=== PATIENT | male | born 1965 | race Caucasian/White ===

== ENCOUNTER 2020-08-02 10:08 | Inpatient (IN) ==
[2020-08-02] MEDS ORDERED: MoRPHine SULFATE 10 MG/ML CARP/VIAL IV STA (11:18)
[2020-08-02] MEDS ORDERED: ONDANSETRON INJ 2 MG/ML 2 ML VIAL IV STA (11:18)
--- NOTE | 2020-08-02 11:22 | Emergency Department Note ---
History of Present Illness General Chief complaint: Neck Injury/Pain Stated complaint: DR. GARCIA REFERRED TO ED, HARD TO SWALLOW Time Seen by Provider: 08/02/20 11:06 Source: patient, family and other (Dr. Garcia) History of Present Illness Provider complaint: Head and neck pain Onset (ago): week(s) 2 Location: head and neck Pain Consistency: + constant Maximum Pain Intensity: 10 Quality: + aching Exacerbated By: + movement Associated symptoms: + cough (Chronic), + headaches, + shortness of breath and + other (Difficulty swallowing); no chest pain, no fever/chills and no nausea/vomiting This is a 55-year-old male with a history of lung cancer with mets to the brain presenting for admission to the hospital. He complains of pain to his neck and his head for the past 2 weeks. He describes it as a severe ache. He rates it a 10 out of 10 in severity. I did obtain history from the patient, his as well as Dr. Mccabe. Dr. Garcia said that he wanted the patient admitted for pain control and transition to palliative care. The patient states that he has had trouble swallowing over the past week. When he tries to swallow it sometimes comes right back up. He has to spit it out. He has been able to drink and keep some fluids down as well as eat some food but not very much. He denies any abdominal pain or vomiting or diarrhea. He has been urinating. He denies any fever. He has been vaccinated fully for COVID-19. Home Medications Medication Instructions Recorded Confirmed Type gabapentin 300 mg capsule 300 mg PO BID 02/09/20 08/02/20 History acetaminophen 325 mg capsule 325 mg PO Q6H PRN cap 04/19/20 08/02/20 History prednisone 20 mg tablet 20 mg PO QDD 05/03/20 08/02/20 History amlodipine 2.5 mg PO QAM 08/02/20 08/02/20 History Allergies Allergy/AdvReac Type Severity Reaction Status Date / Time No Known Allergies Allergy Verified 08/02/20 13:57 Past Med/Surg History Medical History Anemia History of chemotherapy (11/25/18) Abraxane, Carboplatin & Keytruda x cycles Maintenance Keytruda - stopped 06/12/2019 due to rash Salvage Weekly Gemcitabine Non-small cell lung cancer metastatic to brain (10/21/18) Pericardial effusion Status post gamma knife treatment (11/03/18) [address] Caballero ([facility]) Surgical History History of brain surgery (10/21/18) Left Sided Suboccipital craniectomy by Dr. Donis Llanos ([place]) History of knee surgery as a teenager - "bone tumor removed" History of melanoma excision (2011) Right shoulder Family History Grandfather (Paternal) , Passed age 65 of metastatic cancer (unknown primary) No problems noted. Mother Breast cancer, Onset Age: 70 lumpectomy & radiation Father No problems noted. Sister No problems noted. Sister No problems noted. Sister No problems noted. Son No problems noted. Daughter No problems noted. Social History Smoking Status: Current every day smoker Tobacco Type: Cigarettes packs per day: 0.75; Years Smoked: 40; Second Hand Exposure: No; Hx Alcohol Use: Yes Alcohol type: beer and hard liquor Alcohol Intake Frequency: 4 or More x per/Week Hx Substance Use: Yes Non-Prescribed Medications: Marijuana Non-Prescribed Medications Comment: nightly Last Used Substance: Days (ago) Last Used Substance Other:: every night Preferred Language: Citizen Of [place] Communication Ability: Effective Visual Impairment: Limited Hearing Ability: Normal Beliefs That Will Affect Care: None marital status: Current Living Situation: Spouse current occupational status: unemployed 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 and A total of 10 systems reviewed and were otherwise negative Physical Exam Vital Signs Vital Signs - 24 hr 08/02/20 10:13 08/02/20 10:37 08/02/20 10:52 Temperature 36.8 C Temperature Source Temporal Artery Scan Pulse Rate 77 77 Pulse Rate from SpO2 Sensor 78 Pulse Rhythm Regular Pulse Strength Normal Respiratory Rate 18 Respiratory Effort / Characteristics Non-Labored Respiratory Depth Normal Respiratory Pattern Regular Blood Pressure 189/124 H 189/128 H Blood Pressure Mean 145 148 Blood Pressure Position Sitting Pulse Oximetry 98 96 Oxygen Delivery Method Room Air Sepsis Recent Fever Within 48 Hours No Sepsis New/Unexplained Change in Mental Status No N/A Sepsis Action Taken by Nursing No Action Required No Action Required 08/02/20 11:00 08/02/20 12:30 08/02/20 13:00 Temperature Temperature Source Pulse Rate 79 75 74 Pulse Rate from SpO2 Sensor 79 76 74 Pulse Rhythm Pulse Strength Respiratory Rate 12 18 7 L Respiratory Effort / Characteristics Respiratory Depth Respiratory Pattern Blood Pressure 196/132 H 191/120 H 191/127 H Blood Pressure Mean 153 143 148 Blood Pressure Position Pulse Oximetry 97 97 97 Oxygen Delivery Method Sepsis Recent Fever Within 48 Hours Sepsis New/Unexplained Change in Mental Status Sepsis Action Taken by Nursing 08/02/20 14:00 Temperature Temperature Source Pulse Rate 79 Pulse Rate from SpO2 Sensor 80 Pulse Rhythm Pulse Strength Respiratory Rate 16 Respiratory Effort / Characteristics Respiratory Depth Respiratory Pattern Blood Pressure 182/129 H Blood Pressure Mean 146 Blood Pressure Position Pulse Oximetry 98 Oxygen Delivery Method Sepsis Recent Fever Within 48 Hours Sepsis New/Unexplained Change in Mental Status Sepsis Action Taken by Nursing Constitutional: Vital signs reviewed. Eyes: Pupils are equal round reactive to light. Conjunctiva are noninjected. ENT: Pharynx is clear without erythema or exudate. Mucous membranes are dry. Neck supple without meningeal signs. Respiratory: Clear to auscultation bilaterally. Breath sounds are equal bilaterally. Cardiovascular: Regular rate and rhythm. No rubs or gallops. GI: Soft, nondistended and nontender. Bowel sounds are present. Musculoskeletal: No peripheral edema. No lower extremity tenderness. Integumentary: No cyanosis. or jaundice. Neurological: The patient is awake and alert. No focal deficits. Psychiatric: Normal affect. Course Administered Medications Sodium Chloride (Nss) 500 mls @ 125 mls/hr IV [facility] Stop: 09/01/20 11:29 Last Admin: 08/02/20 11:43 Dose: 125 mls/hr Documented by: [id number] Discontinued Medications Morphine Sulfate (Morphine Sulfate 10 Mg/Ml Carp/Vial) 6 mg IV NOW STA Stop: 08/02/20 11:19 Last Admin: 08/02/20 11:42 Dose: 6 mg Documented by: [id number] Ondansetron HCl (Ondansetron Inj 2 Mg/Ml 2 Ml Vial) 4 mg IV NOW STA Stop: 08/02/20 11:19 Last Admin: 08/02/20 11:42 Dose: 4 mg Documented by: [id number] Medical Decision Making Differential Diagnosis Metastatic disease to the brain, intracranial hemorrhage, migraine headache, tension headache, chronic pain syndrome Medical Records Attestation: I reviewed the patient's medical records. I did perform a limited focused review of portions of the patient's old chart on the electronic medical record. The patient had an MRI of the brain in April of this year which showed the following: IMPRESSION: 1. Interval increase in a 1.3 cm enhancing focus and adjacent T2 hyperintensity within the left cerebellar hemisphere since MRI of February 01, 2020. This favors disease progression. Post radiation change could appear similar although is considered less likely. 2. Slight increase in an additional 1 cm left temporal lobe focus which favors disease progression or less likely post radiation change. 3. No change in a 1.3 cm left frontal lobe lesion since prior exam. All of these lesions remain markedly decreased since initial MRI of October 16, 2018. 4. No new lesions identified. ACT 112: Negative or not required by law. Laboratory Data Result diagrams: 08/02/20 10:38 08/02/20 10:38 Lab Results 08/02/20 08/02/20 08/02/20 Range/Units 10:38 10:38 10:38 WBC 6.34 (4.8-10.8) K/uL RBC 5.08 (4.7-6.1) M/uL Hgb 17.2 (14.0-18.0) g/dL Hct 47.7 (42-52) % MCV 93.9 (80-100) fL MCH 33.9 (25-34) pg MCHC 36.1 H (32-36) g/dL RDW Std Deviation 45.5 (36.4-46.3) fL RDW Coeff of Cameron 13.2 (11.5-14.5) % Plt Count 223 (130-400) K/uL MPV 9.1 (7.4-10.4) fL Immature Gran % (Auto) 0.2 % Neut % (Auto) 74.0 % Lymph % (Auto) 16.9 % [place] % (Auto) 8.5 % Eos % (Auto) 0.2 % Baso % (Auto) 0.2 % Neut # (Auto) 4.70 (1.4-6.5) K/uL Lymph # (Auto) 1.07 L (1.2-3.4) K/uL [place] # (Auto) 0.54 (0.11-0.59) K/uL Eos # (Auto) 0.01 (0-0.5) K/uL Baso # (Auto) 0.01 (0-0.2) K/uL Immature Gran # (Auto) 0.01 (0.00-0.02) K/uL PT 10.0 (9.0-12.0) Seconds INR 1.0 (0.9-1.1) APTT 27.9 (21.0-31.0) Seconds PTT Ratio 1.1 Sodium 135 L (136-145) mmol/L Potassium 3.7 (3.5-5.1) mmol/L Chloride 100 (98-107) mmol/L Carbon Dioxide 30 (21-32) mmol/L Anion Gap 5.0 (3-11) BUN 21 H (7-18) mg/dl Creatinine 1.21 (0.6-1.4) mg/dl Est Cr Clr Drug Dosing 65.1 ml/min Est GFR ( Amer) 77.1 Est GFR (Non-Af Amer) 66.5 BUN/Creatinine Ratio 17.7 (10-20) Glucose 81 (70-99) mg/dl Calcium 9.9 (8.5-10.1) mg/dl Total Bilirubin 0.5 (0.2-1) mg/dl AST 29 (15-37) U/L ALT 30 (12-78) U/L Alkaline Phosphatase 85 (45-117) U/L Total Protein 8.1 (6.4-8.2) gm/dl Albumin 3.6 (3.4-5.0) gm/dl Globulin 4.5 H (2.5-4.0) gm/dl Albumin/Globulin Ratio 0.8 L (0.9-2) COVID-19 Eval Order SARS-CoV-2 (PCR) (Negative) Influenza Type A (PCR) (Neg) Influenza Type B (PCR) (Neg) RSV (RT-PCR) (Neg) 08/02/20 08/02/20 Range/Units 11:40 11:40 WBC (4.8-10.8) K/uL RBC (4.7-6.1) M/uL Hgb (14.0-18.0) g/dL Hct (42-52) % MCV (80-100) fL MCH (25-34) pg MCHC (32-36) g/dL RDW Std Deviation (36.4-46.3) fL RDW Coeff of Cameron (11.5-14.5) % Plt Count (130-400) K/uL MPV (7.4-10.4) fL Immature Gran % (Auto) % Neut % (Auto) % Lymph % (Auto) % [place] % (Auto) % Eos % (Auto) % Baso % (Auto) % Neut # (Auto) (1.4-6.5) K/uL Lymph # (Auto) (1.2-3.4) K/uL [place] # (Auto) (0.11-0.59) K/uL Eos # (Auto) (0-0.5) K/uL Baso # (Auto) (0-0.2) K/uL Immature Gran # (Auto) (0.00-0.02) K/uL PT (9.0-12.0) Seconds INR (0.9-1.1) APTT (21.0-31.0) Seconds PTT Ratio Sodium (136-145) mmol/L Potassium (3.5-5.1) mmol/L Chloride (98-107) mmol/L Carbon Dioxide (21-32) mmol/L Anion Gap (3-11) BUN (7-18) mg/dl Creatinine (0.6-1.4) mg/dl Est Cr Clr Drug Dosing ml/min Est GFR ( Amer) Est GFR (Non-Af Amer) BUN/Creatinine Ratio (10-20) Glucose (70-99) mg/dl Calcium (8.5-10.1) mg/dl Total Bilirubin (0.2-1) mg/dl AST (15-37) U/L ALT (12-78) U/L Alkaline Phosphatase (45-117) U/L Total Protein (6.4-8.2) gm/dl Albumin (3.4-5.0) gm/dl Globulin (2.5-4.0) gm/dl Albumin/Globulin Ratio (0.9-2) COVID-19 Eval Order [facility]FluRsv at [facility] SARS-CoV-2 (PCR) NEGATIVE (Negative) Influenza Type A (PCR) Negative (Neg) Influenza Type B (PCR) Negative (Neg) RSV (RT-PCR) Negative (Neg) Imaging Data Radiologist's Impression: Chest X-Ray 08/02/20 11:18 XR chest 1V portable HISTORY: 55 years-old Male cough eval for pna acute cough with possible pneumonia COMPARISON: Chest CT 02/01/2020, chest radiograph 10/20/2018. TECHNIQUE: Portable AP view of the chest FINDINGS: Cardiac silhouette is enlarged. Mild bilateral hilar prominence. Increased size of the previously treated left upper lobe mass now measuring 5.1 x 6.5 cm, most recently measured at 4.7 x 3.3 cm. Ill-defined lesion of the right upper lobe measuring 1.9 cm redemonstrated along with right infrahilar nodule. No pneumothorax, pleural effusion or overt pulmonary edema. Bones of the chest appear grossly intact. IMPRESSION: 1. Increased size of the previously treated left upper lobe mass now measuring up to 6.5 cm. 2. Right upper lobe and right infrahilar nodules redemonstrated. 3. Emphysema. 4. Cardiomegaly. 5. Mild bilateral hilar prominence may correlate with underlying adenopathy. ACT 112: Negative or not required by law. The above report was generated using voice recognition software. It may contain grammatical, syntax or spelling errors. Electronically signed by: Nicholas Kurtz M.D. 08/02/2020 12:[address] 08/02/20 11:29 CT SCAN OF THE BRAIN WITHOUT IV CONTRAST CLINICAL HISTORY: Headache. Lung cancer. Known intracranial metastatic disease. COMPARISON STUDY: MRI of the brain dated 04/11/2020. TECHNIQUE: Unenhanced axial CT scan of the brain is performed from the vertex to the skull base. A dose lowering technique was utilized adhering to the principles of ALARA. CT DOSE: 788.63 mGycm FINDINGS: Brain parenchyma: There are foci of edema with mild mass effect identified in the left frontal lobe (images #16 and #19), the right anterior temporal fossa, and in the left cerebellar hemisphere, as well as image #9). When correlated with the recent MRI these are consistent with metastatic disease. There are parenchymal calcifications noted in the left frontal lobe. There are age-related involutional changes noting mild subcortical and periventricular microangiopathic change. There is no hemorrhage, midline shift, or evidence of acute territorial ischemia by CT criteria. Small chronic lacunar infarcts are noted in the right cerebellar hemisphere and the right thalamus. No extra-axial fluid collection is seen. Ventricles, sulci, cisterns: Prominent secondary to involutional change. Intracranial vasculature: There is atherosclerotic calcification of the cavernous carotid arteries. Calvarium: There is postoperative change from occipital craniectomy. 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 No lytic or blastic bony lesion is seen. Sinuses and mastoids: The visualized paranasal sinuses are clear. The mastoid air cells are well pneumatized. Orbits: The bony orbits are grossly intact. IMPRESSION: 1. There is no hemorrhage, midline shift, or evidence of acute territorial ischemia by CT criteria. 2. There are several foci of intracranial edema identified as detailed above, consistent with the patient's known history of intracranial metastatic disease. Direct comparison to the 04/11/2020 MRI is difficult due to differences in modality. 3. There is postoperative change from occipital craniectomy with associated pseudomeningocele. ACT 112: Negative or not required by law. Electronically signed by: Bronson Birmingham M.D. 08/02/2020 12:19 PM MDM Narrative I did evaluate the patient as noted above. I did obtain history from the patient and his . I also talked to Dr. Garcia about the patient. He wanted the patient to be admitted for intractable pain and transition to palliative care. IV access was established. I did treat the patient with IV morphine and Zofran. He was also given normal saline IV. I did order and personally re viewed the images of the patient's chest x-ray as described above. His left upper lobe mass has increased in size. I did order and review the patient's blood work as noted in the electronic medical record. CBC is unremarkable without leukocytosis, anemia or thrombocytopenia. Electrolytes are remarkable for sodium of 135. I did order a CT of the head. I did review the images myself as well as the radiology report as described above. There is no evidence of hemorrhage. He does have metastatic disease. I did discuss case with the hospitalist and rifle case repairer for further care in the hospital. His screening Covid test was negative. Impression & Plan Non-small cell lung cancer metastatic to brain, Headache, Neck pain, Dysphagia Discharge Plan Visit Data Chief Complaint: Neck Injury/Pain Stated Complaint: DR. GARCIA REFERRED TO ED, HARD TO SWALLOW ED Provider: Andrez Reyes Discharge Problem: Non-small cell lung cancer metastatic to brain, Headache, Neck pain, Dysphagia Patient Disposition: Being Evaluated by Hospitalist Forms Stand Alone Forms: My [facility] Prescriptions Prescriptions: No Action gabapentin 300 mg capsule 300 mg PO BID RF: 0 acetaminophen [Tylenol] 325 mg capsule 325 mg PO Q6H PRN (Reason: Pain) RF: 0 prednisone 20 mg tablet 20 mg PO QDD RF: 0 amlodipine 2.5 mg tablet 2.5 mg PO QAM RF: 0 Referrals Referrals: Nehemias Shane [Primary Care Provider] -
[2020-08-02 11:30] LABS: Basophils # (auto) 0.01 K/uL (0-0.2); Basophils % (auto) 0.2 %; Eosinophils # (auto) 0.01 K/uL (0-0.5); Eosinophils % (auto) 0.2 %; Hematocrit (blood only) 47.7 % (42-52); Hemoglobin 17.2 g/dL (14.0-18.0); Immature Granulocytes # (auto) 0.01 K/uL (0.00-0.02); Immature Granulocytes % (auto) 0.2 %; Lymphocytes # (auto) 1.07 K/uL (1.2-3.4); Lymphocytes % (auto) 16.9 %; Mean Corpuscular Hemoglobin 33.9 pg (25-34); Mean Corpuscular Hgb Conc 36.1 g/dL (32-36); Mean Corpuscular Volume 93.9 fL (80-100); Mean Platelet Volume 9.1 fL (7.4-10.4); Monocytes # (auto) 0.54 K/uL (0.11-0.59); Monocytes % (auto) 8.5 %; Platelet Count 223 K/uL (130-400); RDW Coefficient of Variation 13.2 % (11.5-14.5); RDW Standard Deviation 45.5 fL (36.4-46.3); Red Blood Count 5.08 M/uL (4.7-6.1); White Blood Count 6.34 K/uL (4.8-10.8)
[2020-08-02 11:37] LABS: Albumin Level 3.6 gm/dl (3.4-5.0); BUN Creatinine Ratio 17.7 (10-20); Calcium 9.9 mg/dl (8.5-10.1); Creatinine Clr Calc Pharmacy 65.1 ml/min; Est GFR (African American) 77.1; Est GFR (Non-African American) 66.5; Potassium 3.7 mmol/L (3.5-5.1)
[2020-08-02 11:39] LABS: Albumin Globulin Ratio 0.8 (0.9-2); Bilirubin,Total 0.5 mg/dl (0.2-1); Globulin 4.5 gm/dl (2.5-4.0); Total Protein 8.1 gm/dl (6.4-8.2)
[2020-08-02 11:41] LABS: Partial Thromboplastin Ratio 1.1; Partial Thromboplastin Time 27.9 Seconds (21.0-31.0)
[2020-08-02] MEDS: SODIUM CHLORIDE 0.9% 500 ML IV SCH (11:43)
--- NOTE | 2020-08-02 12:21 | CT Scan Report ---
CT SCAN OF THE BRAIN WITHOUT IV CONTRAST CLINICAL HISTORY: Headache. Lung cancer. Known intracranial metastatic disease. COMPARISON STUDY: MRI of the brain dated 04/11/2020. TECHNIQUE: Unenhanced axial CT scan of the brain is performed from the vertex to the skull base. A do se lowering technique was utilized adhering to the principles of ALARA. CT DOSE: 788.63 mGycm FINDINGS: Brain parenchyma: There are foci of edema with mild mass effect identified in the left frontal lobe ( images #16 and #19), the right anterior temporal fossa, and in the left cerebellar hemisphere, as wel l as image #9). When correlated with the recent MRI these are consistent with metastatic disease. The re are parenchymal calcifications noted in the left frontal lobe. There are age-related involutional changes noting mild subcortical and periventricular microangiopathic change. There is no hemorrhage, midline shift, or evidence of acute territorial ischemia by CT criteria. Small chronic lacunar infar cts are noted in the right cerebellar hemisphere and the right thalamus. No extra-axial fluid collect ion is seen. Ventricles, sulci, cisterns: Prominent secondary to involutional change. Intracranial vasculature: There is atherosclerotic calcification of the cavernous carotid arteries. Calvarium: There is postoperative change from occipital craniectomy. Associated occipital pseudomenin gocele measures up to 4 cm. No lytic or blastic bony lesion is seen. Sinuses and mastoids: The visualized paranasal sinuses are clear. The mastoid air cells are well pneu matized. Orbits: The bony orbits are grossly intact. IMPRESSION: 1. There is no hemorrhage, midline shift, or evidence of acute territorial ischemia by CT criteria. 2. There are several foci of intracranial edema identified as detailed above, consistent with the pat ient's known history of intracranial metastatic disease. Direct comparison to the 04/11/2020 MRI is di fficult due to differences in modality. 3. There is postoperative change from occipital craniectomy with associated pseudomeningocele. ACT 112: Negative or not required by law. Electronically signed by: Bronson Birmingham M.D. 08/02/2020 12:19 PM
[2020-08-02 12:33] LABS: Influenza A virus by PCR Negative (Neg); Influenza B virus by PCR Negative (Neg); RSV by PCR Negative (Neg); SARS CoV2 RNA(COVID-19) InHosp NEGATIVE (Negative)
--- NOTE | 2020-08-02 12:54 | XRay Report ---
XR chest 1V portable HISTORY: 55 years-old Male cough eval for pna acute cough with possible pneumonia COMPARISON: Chest CT 02/01/2020, chest radiograph 10/20/2018. TECHNIQUE: Portable AP view of the chest FINDINGS: Cardiac silhouette is enlarged. Mild bilateral hilar prominence. Increased size of the previously torres ated left upper lobe mass now measuring 5.1 x 6.5 cm, most recently measured at 4.7 x 3.3 cm. Ill-def ined lesion of the right upper lobe measuring 1.9 cm redemonstrated along with right infrahilar nodul e. No pneumothorax, pleural effusion or overt pulmonary edema. Bones of the chest appear grossly inta ct. IMPRESSION: 1. Increased size of the previously treated left upper lobe mass now measuring up to 6.5 cm. 2. Right upper lobe and right infrahilar nodules redemonstrated. 3. Emphysema. 4. Cardiomegaly. 5. Mild bilateral hilar prominence may correlate with underlying adenopathy. ACT 112: Negative or not required by law. The above report was generated using voice recognition software. It may contain grammatical, syntax o r spelling errors. Electronically signed by: Nicholas Kurtz M.D. 08/02/2020 12:53 PM
--- NOTE | 2020-08-02 15:37 | History & Physical Report ---
Date of Service August 02, 2020 Assessment & Plan (1) Non-small cell lung cancer metastatic to brain: As per HPI. See Oncology note from 04/13/20 - Patient and ready for palliative care and hospice - Admit to medical floor - Morphine 4 mg IV q2 hr PRN severe pain, Roxanol 10 mg q4 PRN pain, Tylenol PRN - Ativan for anxiety or seizure - Magic swizzle for oral care if desired - liquid and food as desired for comfort- speech swallow recs pending- Appreciate as this will greatly assist with patient's basic pleasure and needs. - LR at 90 ml hour - Palliative care and case management consult for- hospice (2) Headache: as above pain control control BP (3) Neck pain: As above - lidoderm patch (4) Dysphagia: As above, appreciate speech therapy. - Goal is patient comfort and ease of enjoying a meal and fluid (5) Acute kidney injury: No acute needs, palliative care - May need to adjust medications if this changes during admission for clearance. (6) HTN (hypertension), benign: Continue home amlodipine Add IV hydralazine for blood pressure greater than 180 Blood pressures were as high as 200/125 after admission (7) Ineffective coping: Patient with adequate reasons for anger - Get pateint's basic needs met with pain control and diet - It may be worth re-assessing patient's coping strategies when pain is better met - His way of dealing now is outbursts to his and alcohol and smoking - Consider psychiatric consultation as he does voice that he can at home with a gun - he has no active plan and no access to this while here. History of Present Illness Chief Complaint: cancer Primary Care Provider: Nehemias Shane 55 YOM with NSCLC with metastatic disease to brain 2018. He was originally diagnosed in 2019 through evaluation for bifrontal headaches, anorexia and weight loss. MRI of the brain revealed multiple intra-cerebral and cerebellar lesions and [place] [facility] completed 6 cycles of combo Paclitaxel, Carboplatin, and Pembrolizumab and then was on maintenance Pembrolizumab that was discontinued in May 2019 secondary to severe disseminated skin rash. He then started Gemzar in October of 2019. Brain MRI in January with new left cerebellar and left temporal lobe lesions and underwent Gamma knife in Mar 2020. His disease continued to progress and involved renal dysfunction and probable GI bleed requiring transfusions. In April patient had discussion with his oncologist and the for transition to palliative care and home hospice. The patient did not undergo hospice care, because he didn't feel that he needed it at that time. Patient was referred in today by his Oncologist Dr. Andrea, for worsening pain to his neck, hips, and feet, decline in nutritional status and functional status. I spoke with the patient and his who remains at the bedside, he is rightfully angry at his situation. He was able to be calmed down, to assess what he feels is important and needed for him. He does wish to remain no code and transition to being made comfortable. He wants to eat and smoke. He did accept a nicotine patch and that calmed him down knowing that was an option. He reports difficulty eating because he has no teeth to chew his food, and gets tired easily chewing, this leads him to having swallowing difficulties. His also notes that he coughs on water when he is fatigued. They both are ready for hospice assistance. What is important to the patient now is having better pain control, being able to enjoy some food, wants alcohol and to be able to smoke. He was on no pain mediations prior, so will start with Morphine IV for severe pain, Roxanol for longer lasting relief, and Tylenol. Speech therapy consult to assist with possibly getting a consistency of food and liquid that is easier for him to manage. Palliative care consult will also be placed. Allergies Allergy/AdvReac Type Severity Reaction Status Date / Time No Known Allergies Allergy Verified 08/02/20 13:57 Home Medications Medication Instructions Recorded Confirmed Type gabapentin 300 mg capsule 300 mg PO BID 02/09/20 08/02/20 History acetaminophen 325 mg capsule 325 mg PO Q6H PRN cap 04/19/20 08/02/20 History prednisone 20 mg tablet 20 mg PO QDD 05/03/20 08/02/20 History amlodipine 2.5 mg PO QAM 08/02/20 08/02/20 History Past Med/Surg History Medical History Anemia History of chemotherapy (11/25/18) Abraxane, Carboplatin & Keytruda x cycles Maintenance Keytruda - stopped 06/12/2019 due to rash Salvage Weekly Gemcitabine Non-small cell lung cancer metastatic to brain (10/21/18) Pericardial effusion Status post gamma knife treatment (11/03/18) [address] Caballero ([place] [facility]) Surgical History History of brain surgery (10/21/18) Left Sided Suboccipital craniectomy by Dr. Donis Llanos ([place]) History of knee surgery as a teenager - "bone tumor removed" History of melanoma excision (2011) Right shoulder Family History Grandfather (Paternal) , Passed age 65 of metastatic cancer (unknown primary) No problems noted. Mother Breast cancer, Onset Age: 70 lumpectomy & radiation Father No problems noted. Sister No problems noted. Sister No problems noted. Sister No problems noted. Son No problems noted. Daughter No problems noted. 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 Feels Safe at Home: Yes Childhood Exposure to Second-Hand Smoke: No caffeine: Yes (1-2 cup of coffee/day ) during the past year weight has: remained stable Dental Care, Regularly: No Assistive Devices: Cane and Walker Review of Systems Review of Systems: REVIEW OF SYSTEMS: Constitutional: No fever, sweats or chills Eyes: No diplopia, no worsening or blurred vision ENT: (+) Difficulty hearing, trouble swallowing Respiratory: (+) cough, sputum, NO dyspnea at rest or on exertion Cardiovascular: No chest pain, tightness or palpitations Abdomen: (+) constipation No pain, nausea, vomiting, diarrhea or Musculoskeletal: No joint pain, calf pain, swelling Neurologic: No weakness, numbness/tingling, or balance problems Psychiatric: (+) anger, No anxiety or depression Skin: No rash or itch Physical Exam Physical Exam: PHYSICAL EXAM: General: awake, alert, no apparent distress Head: Normocephalic, atraumatic ENT: PERRL, EOMI, no pharyngeal exudate, mucous membranes moist Neuro: AAO x 3, speech clear and appropriate, intact bilaterally 5/5, sensation intact and equal all extremities and dermatomes, no pronator drift Chest: equal rise and fall of the chest, no accessory muscle use, no heaves or thrills, decreased in bases, on room air, Cardiac: Regular rate and rhythm, telemetry reviewed, skin warm dry, cap refill <3 seconds, peripheral pulses +2 no JVD, no murmur, no edema GI: NABS x 4 quadrants, soft, nontender to palpation, no rebound, guarding or tenderness, last BM was Saturday and was hard stool. : Spontaneously voiding, no pain, no CVA tenderness, Extremities: Normal inspection, no peripheral edema or erythema, calfs nontender to palpation, neuropathy pain and decreased sensation to feet bilaterally Psych: angry and mad, able to de-escalate Results & Data Results & [facility] ([facility]) Vital Signs (Past 12 Hours) Vital Signs Temp Pulse Resp BP Pulse Ox 08/02/20 14:00 79 16 182/129 H 98 08/02/20 13:00 74 7 L 191/127 H 97 08/02/20 12:30 75 18 191/120 H 97 08/02/20 11:00 79 12 196/132 H 97 08/02/20 10:37 77 189/128 H 96 08/02/20 10:13 36.8 C 77 18 189/124 H 98 Laboratory Results Abnormal lab results 08/02/20 08/02/20 Range/Units 10:38 10:38 MCHC 36.1 H (32-36) g/dL Lymph # (Auto) 1.07 L (1.2-3.4) K/uL Sodium 135 L (136-145) mmol/L BUN 21 H (7-18) mg/dl Globulin 4.5 H (2.5-4.0) gm/dl Albumin/Globulin Ratio 0.8 L (0.9-2) Diagnostic Findings Chest X-Ray 08/02/20 11:18 XR chest 1V portable HISTORY: 55 years-old Male cough eval for pna acute cough with possible pneumonia COMPARISON: Chest CT 02/01/2020, chest radiograph 10/20/2018. TECHNIQUE: Portable AP view of the chest FINDINGS: Cardiac silhouette is enlarged. Mild bilateral hilar prominence. Increased size of the previously treated left upper lobe mass now measuring 5.1 x 6.5 cm, most recently measured at 4.7 x 3.3 cm. Ill-defined lesion of the right upper lobe measuring 1.9 cm redemonstrated along with right infrahilar nodule. No pneumothorax, pleural effusion or overt pulmonary edema. Bones of the chest appear grossly intact. IMPRESSION: 1. Increased size of the previously treated left upper lobe mass now measuring up to 6.5 cm. 2. Right upper lobe and right infrahilar nodules redemonstrated. 3. Emphysema. 4. Cardiomegaly. 5. Mild bilateral hilar prominence may correlate with underlying adenopathy. Electronically signed by: Nicholas Kurtz M.D. 08/02/2020 12:[address] 08/02/20 11:29 CT SCAN OF THE BRAIN WITHOUT IV CONTRAST CLINICAL HISTORY: Headache. Lung cancer. Known intracranial metastatic disease. COMPARISON STUDY: MRI of the brain dated 04/11/2020. TECHNIQUE: Unenhanced axial CT scan of the brain is performed from the vertex to the skull base. A dose lowering technique was utilized adhering to the principles of ALARA. CT DOSE: 788.63 mGycm FINDINGS: Brain parenchyma: There are foci of edema with mild mass effect identified in the left frontal lobe (images #16 and #19), the right anterior temporal fossa, and in the left cerebellar hemisphere, as well as image #9). When correlated with the recent MRI these are consistent with metastatic disease. There are parenchymal calcifications noted in the left frontal lobe. There are age-related involutional changes noting mild subcortical and periventricular microangiopathic change. There is no hemorrhage, midline shift, or evidence of acute territorial ischemia by CT criteria. Small chronic lacunar infarcts are noted in the right cerebellar hemisphere and the right thalamus. No extra-axial fluid collection is seen. Ventricles, sulci, cisterns: Prominent secondary to involutional change. Intracranial vasculature: There is atherosclerotic calcification of the cavernous carotid arteries. Calvarium: There is postoperative change from occipital craniectomy. 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 No lytic or blastic bony lesion is seen. Sinuses and mastoids: The visualized paranasal sinuses are clear. The mastoid air cells are well pneumatized. Orbits: The bony orbits are grossly intact. IMPRESSION: 1. There is no hemorrhage, midline shift, or evidence of acute territorial ischemia by CT criteria. 2. There are several foci of intracranial edema identified as detailed above, consistent with the patient's known history of intracranial metastatic disease. Direct comparison to the 04/11/2020 MRI is difficult due to differences in modality. 3. There is postoperative change from occipital craniectomy with associated pseudomeningocele. Electronically signed by: Bronson Birmingham M.D. 08/02/2020 12:19 PM Medications Administered Sodium Chloride (Nss) 500 mls @ 125 mls/hr IV .Q4H LEI Stop: 09/01/20 11:29 Last Admin: 08/02/20 11:43 Dose: 125 mls/hr Documented by: [id number] Nicotine (Nicotine 21 Mg/24 Hr Tdsy) 21 mg TD QAM LEI Stop: 09/01/20 14:59 Last Admin: 08/02/20 16:02 Dose: 21 mg Documented by: [id number] Discontinued Medications Morphine Sulfate (Morphine Sulfate 10 Mg/Ml Carp/Vial) 6 mg IV NOW STA Stop: 08/02/20 11:19 Last Admin: 08/02/20 11:42 Dose: 6 mg Documented by: [id number] Ondansetron HCl (Ondansetron Inj 2 Mg/Ml 2 Ml Vial) 4 mg IV NOW STA Stop: 08/02/20 11:19 Last Admin: 08/02/20 11:42 Dose: 4 mg Documented by: [id number] ECG Additional Comments: Not performed, nor indicated at this time. Code Status & VTE Plan Code Status CODE: DNR/DNI VTE: Not indicated VTE Prophylaxis Plan VTE Prophylaxis will be ordered: No Reason for no VTE drug order: Contraindicated Supervising Physician Co-Signing Physician Notes KATHERIN Supervision note: I have personally seen and examined the patient and discussed and verified the montiel points of the history and physical along with the plan with KATHERIN Swift with the following exceptions and/or additions: Patient is a 55-year-old male unfortunately with metastatic non-small cell lung cancer with mets to the brain who is here with intractable pain with headache and neck pain. He was referred to the ER by his oncologist to be initiated in to palliative/hospice care for uncontrolled cancer related pain. History and ROS reviewed as above Vitals reviewed-Hypertensive Gen: AAOx3, NAD HEENT: Anicteric sclerae, EOMI CV: RRR no mgr nl S1S2 Pulm: CTAB no wcr Abd: +BS soft NT ND no masses or hernias Ext: No edema or calf tenderness Skin: No rashes, warm/dry Neuro: Full strength throughout Laboratory values reviewed, imaging reviewed 55-year-old male with metastatic non-small cell lung cancer with mets to the brain, here with intractable pain Appreciate palliative care consultation Continue morphine as needed for pain, other palliative medications as above Add IV hydralazine as needed elevated blood pressures Continue prednisone for brain edema which may help with pain control Transition to hospice care at home Patient very anxious for discharge to home tomorrow PG Care Time/CCT Total # of Minutes Spent Total Time Spent with Patient: Total time spent is greater than 50% in coordination of care (as documented) at patient's floor/unit and/or counseling patient: Coding Level of Care Code 90157 Initial Inpt Care Lvl 3 Diagnoses Non-small cell lung cancer metastatic to brain C34.90; C79.31 Headache R51.9; G89.29 Headache chronicity pattern: chronic headache Headache type: unspecified Intractability: intractable Neck pain M54.2 Dysphagia R13.10 Dysphagia type: unspecified Acute kidney injury N17.9 HTN (hypertension), benign I10 Ineffective coping R45.89 (1) Dysphagia Dysphagia type: unspecified Qualified Code(s): R13.10 - Dysphagia, unspecified (2) Headache Headache chronicity pattern: chronic headache Headache type: unspecified Intractability: intractable Qualified Code(s): R51.9 - Headache, unspecified; G89.29 - Other chronic pain
[2020-08-02] MEDS: NICOTINE 21 MG/24 HR TDSY TD SCH (16:02)
--- NOTE | 2020-08-02 16:39 | Palliative Care Consultation ---
Date of Consultation August 02, 2020 Assessment & Plan (1) Palliative care encounter: Morphine was very effective for his pain, though he does have some renal disease and we will need to monitor for toxicity. I would not consider fentanyl for this gentleman given his low BMI. He is able to swallow water and ice chips in the ER. He will be evaluated by ST for recommendation on diet. He is adamant about going home and wants to go outside and smoke. His appears overwhelmed at bedside. She is working and reports that she does not have support to help care for him at home. She asked about hospice care. We started discussion about hospice care though I am concerned about how she would be able to manage without additional support. Palliative care will follow to monitor pain management and assist with plan of care. (2) Non-small cell lung cancer metastatic to brain: (3) Dysphagia: Dysphagia type: unspecified Qualified Code(s): R13.10 - Dysphagia, unspecified History of Present Illness Reason for Consultation: pain management, goals of care Requesting Physician: Tc Swift History of Present Illness 55 yo gentleman with NSCLC metastatic to brain. He has had multiple cancer treatments, as well as gamma knife therapy for brain mets. Despite treatment he has persistent right upper lobe mass, malignant pleural and pericardial effusions and new brain mets. He has had functional decline at home over the last two months. He reports a recent fall down the stairs and says that he broke the fall with is head. Since that time he has had neck pain in addition to severe headaches with photophobia. He has been taking tylenol at home, apparently at pretty high doses, though he is not specific about how much. He did receive a dose of morphine in the ER which relieved his pain. He has also been on prednisone at home. He has been at home during the day when his is at work. He has had functional decline with weakness, difficulty walking and difficulty swallowing. His is at bedside. Allergies Allergy/AdvReac Type Severity Reaction Status Date / Time No Known Allergies Allergy Verified 08/02/20 13:57 Home Medications Medication Instructions Recorded Confirmed Type gabapentin 300 mg capsule 300 mg PO BID 02/09/20 08/02/20 History acetaminophen 325 mg capsule 325 mg PO Q6H PRN cap 04/19/20 08/02/20 History prednisone 20 mg tablet 20 mg PO QDD 05/03/20 08/02/20 History amlodipine 2.5 mg PO QAM 08/02/20 08/02/20 History Patient History Medical History Anemia History of chemotherapy (11/25/18) Abraxane, Carboplatin & Keytruda x cycles Maintenance Keytruda - stopped 06/12/2019 due to rash Salvage Weekly Gemcitabine Non-small cell lung cancer metastatic to brain (10/21/18) Pericardial effusion Status post gamma knife treatment (11/03/18) [address] Caballero ([place] [facility]) Surgical History History of brain surgery (10/21/18) Left Sided Suboccipital craniectomy by Dr. Donis Llanos ([place]) History of knee surgery as a teenager - "bone tumor removed" History of melanoma excision (2011) Right shoulder Family History Grandfather (Paternal) , Passed age 65 of metastatic cancer (unknown primary) No problems noted. Mother Breast cancer, Onset Age: 70 lumpectomy & radiation Father No problems noted. Sister No problems noted. Sister No problems noted. Sister No problems noted. Son No problems noted. Daughter No problems noted. Social History Smoking Status: Current every day smoker Tobacco Type: Cigarettes packs per day: 0.75; Years Smoked: 40; Second Hand Exposure: No; Hx Alcohol Use: Yes Alcohol type: beer and hard liquor Alcohol Intake Frequency: 4 or More x per/Week Hx Substance Use: Yes Non-Prescribed Medications: Marijuana Non-Prescribed Medications Comment: nightly Last Used Substance: Days (ago) Last Used Substance Other:: every night Preferred Language: Estonian Communication Ability: Effective Visual Impairment: Limited Hearing Ability: Normal Beliefs That Will Affect Care: None marital status: Current Living Situation: Spouse current occupational status: unemployed 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 Safe at Home: Yes Childhood Exposure to Second-Hand Smoke: No caffeine: Yes (1-2 cup of coffee/day ) during the past year weight has: remained stable Dental Care, Regularly: No Review of Systems Review of Systems: [place] Symptom Assessment Scale Pain 0/3 after morphine Nausea 0/3 Dyspnea 0/3 Drowsiness 0/3 Anxiety 2/3 Palliative Performance Score 50% Physical Exam Constitutional: + thin and + frail appearing ENMT: Mouth: + dry oral mucous membranes Respiratory: normal respiratory effort; no labored breathing Cardiovascular: Rate/Rhythm: regular rate and regular rhythm Musculoskeletal: Extremities: extremities normal to inspection Neurologic: moves all extremities and awake Results & Data ([facility]) Vital Signs (Past 12 Hours) Vital Signs Temp Pulse Resp BP Pulse Ox 08/02/20 14:00 79 16 182/129 H 98 08/02/20 13:00 74 7 L 191/127 H 97 08/02/20 12:30 75 18 191/120 H 97 08/02/20 11:00 79 12 196/132 H 97 08/02/20 10:37 77 189/128 H 96 08/02/20 10:13 98.2 F 77 18 189/124 H 98 PG Care Time/CCT Total # of Minutes Spent Total Time Spent with Patient: Total time spent is greater than 50% in coordination of care (as documented) at patient's floor/unit and/or counseling patient: total time spent 60 minutes with more than 50% of time spent on symptom management , goals of care, hospice, family support Coding Level of Care Code 68085 Inpt Consult Level 3 Diagnoses Palliative care encounter Z51.5 Non-small cell lung cancer metastatic to brain C34.90; C79.31 Dysphagia R13.10 Dysphagia type: unspecified Time Spent (min) 60
[2020-08-02] MEDS: MoRPHine SULFATE 4 MG/ML 1 ML CARP\\VIAL IV SCH ×3 (17:03→19:32)
[2020-08-02] MEDS: predniSONE 20 MG TAB PO SCH (17:59)
[2020-08-02] MEDS ORDERED: MoRPHine SULFATE 5 MG/0.25 ML UDP PO PRN (20:21)
[2020-08-02] MEDS ORDERED: ATROPINE SULFATE 1% OP SOLN 5 ML BTL SL PRN (20:21)
[2020-08-02] MEDS ORDERED: bisacodyL 5 MG TABEC PO PRN (20:21)
[2020-08-02] MEDS ORDERED: ONDANSETRON 4 MG OD TAB SL PRN (20:21)
[2020-08-02] MEDS ORDERED: LORazepam 0.5 MG/1 ML VIAL IV PRN (20:21)
[2020-08-02] MEDS ORDERED: ACETAMINOPHEN 325 MG TAB PO PRN (20:39)
[2020-08-02] MEDS ORDERED: amLODIPine BESYLATE 5 MG TAB PO ONE (21:53)
[2020-08-02] MEDS: DOCUSATE SODIUM/SENNA 50/8.6MG TAB PO SCH (22:37)
[2020-08-02] MEDS: GABAPENTIN 300 MG CAP PO SCH (22:37)
[2020-08-02] MEDS: hydrALAZINE HCL 20 MG/ML VIAL IV PRN (22:48)
[2020-08-02] MEDS: LACTATED RINGER'S 1,000 ML IV SCH (22:48)
[2020-08-02] MEDS: MoRPHine SULFATE 4 MG/ML 1 ML CARP\\VIAL IV PRN (22:48)
[2020-08-03] MEDS: MoRPHine SULFATE 4 MG/ML 1 ML CARP\\VIAL IV PRN ×4 (02:36→19:36)
[2020-08-03] MEDS: SODIUM CHLORIDE 0.9% 500 ML IV SCH ×2 (07:41→13:25)
[2020-08-03] MEDS: MoRPHine SULFATE 4 MG/ML 1 ML CARP\\VIAL IV SCH (07:42)
[2020-08-03] MEDS: ONDANSETRON INJ 2 MG/ML 2 ML VIAL IV PRN ×2 (08:27→19:45)
[2020-08-03] MEDS: amLODIPine BESYLATE 5 MG TAB PO SCH (08:28)
[2020-08-03] MEDS: hydrALAZINE HCL 20 MG/ML VIAL IV PRN ×3 (08:40→17:39)
[2020-08-03] MEDS: LIDOCAINE 5% 1 PATCH TD SCH (08:42)
[2020-08-03] MEDS: LACTATED RINGER'S 1,000 ML IV SCH ×2 (09:30→19:44)
[2020-08-03] MEDS ORDERED: METOCLOPRAMIDE HCL INJ 5 MG/ML 2 ML VIAL IV STA (09:41)
[2020-08-03] MEDS ORDERED: METOCLOPRAMIDE HCL INJ 5 MG/ML 2 ML VIAL IV PRN (09:41)
--- NOTE | 2020-08-03 12:59 | Palliative Care Progress Note ---
Date of Service August 03, 2020 Assessment & Plan (1) Palliative care encounter: I spoke with his about concerns about her having sufficient support at home. She is agreeable to SNF placement which would provide round the clock pain management and care for him and allow her to focus on family rather than caregiving. We discussed pain management. He would benefit from routine dosing of oral morphine for more consistent analgesia. We can continue IV morphine prn for breakthrough pain and convert to oral equivalent for discharge. They are agreeable to this. (2) Non-small cell lung cancer metastatic to brain: Admission and Anticipated Discharge Date Admission Date: August 02, 2020 Subjective Lethargic but arousable. Not having any pain at this time. He has had four dos es of IV morphine (48 OME) in last 24 hours. He and his note that swallowing is easier today. He is sipping ice water without difficulty. Appetite is poor. Review of Systems Review of Systems: [place] Symptom Assessment Scale Pain 0/3 after medication Dyspnea 0/3 Anxiety 1/3 Fatigue 2/3 Drowsiness 1/3 Palliative Performance Score 30% Physical Exam Constitutional: + thin and + lethargic ENMT: Mouth: oral mucous membranes not dry Respiratory: normal respiratory effort; no labored breathing Cardiovascular: hypertensive Musculoskeletal: Extremities: + muscle atrophy Results & Data ([facility]) Vital Signs (Past 12 Hours) Vital Signs Pulse Resp BP 08/03/20 10:34 80 16 200/115 H 08/03/20 08:53 83 12 184/115 H 08/03/20 08:00 83 14 203/129 H PG Care Time/CCT Total # of Minutes Spent Total Time Spent with Patient: Total time spent is greater than 50% in coordination of care (as documented) at patient's floor/unit and/or counseling patient: Coding Level of Care Code 83688 Subseq Hosp Care Lvl 2 Diagnoses Palliative care encounter Z51.5 Non-small cell lung cancer metastatic to brain C34.90; C79.31
[2020-08-03] MEDS: DOCUSATE SODIUM/SENNA 50/8.6MG TAB PO SCH (13:23)
[2020-08-03] MEDS: NICOTINE 21 MG/24 HR TDSY TD SCH (13:24)
[2020-08-03] MEDS: GABAPENTIN 300 MG CAP PO SCH ×2 (13:24→22:44)
--- NOTE | 2020-08-03 13:59 | Hospitalist Progress Note ---
Date of Service August 03, 2020 Assessment & Plan (1) Non-small cell lung cancer metastatic to brain: As per HPI. See Oncology note from 04/13/20 - Patient and ready for palliative care and hospice - Pain and nausea control - Considering rehab vs. SNF with hospice. - Palliative care and case management consult for- hospice (2) Dysphagia: As above, appreciate speech therapy. - Goal is patient comfort and ease of enjoying a meal and fluid (3) HTN (hypertension), benign: BP today has been high in the context of pain. - Continue home amlodipine as able - Continue hydralazine IV PRN (4) Acute kidney injury: No acute needs, palliative care. - May need to adjust medications if this changes during admission for clearance. (5) Ineffective coping: Patient with adequate reasons for anger. - Consider psychiatric consultation as he does voice that he can at home with a gun - He has no active plan and no access to this while here. Admission and Anticipated Discharge Date Admission Date: August 02, 2020 Subjective Vomiting profusely while I was in the room. Not in pain though. Reports no fevers/chills, chest pain, shortness of breath. Physical Exam Constitutional: WD/WN, vitals as above + acute distress and + malnourished Eyes: EOM intact bilaterally; no conjunctival abnormality ENMT: external ear and nose normal, oropharynx normal Neck: trachea midline, no thyromegaly normal visual inspection Respiratory: normal respiratory effort, lungs clear to auscultation no respiratory distress Cardiovascular: RRR, no murmur, no edema Gastrointestinal (Abdomen): Inspection/Auscultation: abdomen normal to inspection; abdomen not distended Musculoskeletal: no cyanosis or clubbing, extremities motor strength 5/5 Skin: no rashes, warm and dry Neurologic: moves all extremities and awake Psychiatric: Orientation: alert, oriented to person and cooperative Results & Data Results & Data ([facility]) Vital Signs (Past 12 Hours) Vital Signs Pulse Resp BP 08/03/20 10:34 80 16 200/115 H 08/03/20 08:53 83 12 184/115 H 08/03/20 08:00 83 14 203/129 H PG Care Time/CCT Total # of Minutes Spent Total Time Spent with Patient: Total time spent is greater than 50% in coordination of care (as documented) at patient's floor/unit and/or counseling patient: Coding Level of Care Code 85710 Subseq Hosp Care Lvl 2 Diagnoses Non-small cell lung cancer metastatic to brain C34.90; C79.31 Dysphagia R13.10 Dysphagia type: unspecified HTN (hypertension), benign I10 Acute kidney injury N17.9 Ineffective coping R45.89 (1) Dysphagia Dysphagia type: unspecified Qualified Code(s): R13.10 - Dysphagia, unspecified
[2020-08-03] MEDS: MoRPHine SULFATE 10 MG/0.5 ML UDP PO SCH ×3 (14:30→19:35)
[2020-08-03] MEDS: predniSONE 20 MG TAB PO SCH (17:38)
[2020-08-04] MEDS: MoRPHine SULFATE 10 MG/0.5 ML UDP PO SCH ×3 (01:49→17:29)
[2020-08-04] MEDS: MoRPHine SULFATE 4 MG/ML 1 ML CARP\\VIAL IV PRN ×3 (04:50→20:59)
[2020-08-04] MEDS: LACTATED RINGER'S 1,000 ML IV SCH ×2 (05:57→17:34)
[2020-08-04] MEDS: amLODIPine BESYLATE 5 MG TAB PO SCH (08:09)
[2020-08-04] MEDS: GABAPENTIN 300 MG CAP PO SCH ×2 (08:10→20:29)
[2020-08-04] MEDS: DOCUSATE SODIUM/SENNA 50/8.6MG TAB PO SCH (08:10)
[2020-08-04] MEDS: hydrALAZINE HCL 20 MG/ML VIAL IV PRN ×3 (08:11→20:44)
[2020-08-04] MEDS: LIDOCAINE 5% 1 PATCH TD SCH (08:12)
[2020-08-04] MEDS: NICOTINE 21 MG/24 HR TDSY TD SCH (08:12)
[2020-08-04] MEDS ORDERED: MoRPHine SULFATE 5 MG/0.25 ML UDP PO STA (11:00)
--- NOTE | 2020-08-04 11:32 | Hospitalist Progress Note ---
Date of Service August 04, 2020 Assessment & Plan (1) Non-small cell lung cancer metastatic to brain: As per HPI. See Oncology note from 04/13/20 - Patient and ready for palliative care and hospice - Pain and nausea control - Considering rehab vs. SNF with hospice. - Palliative care and case management consult for- hospice -> Will try Roxanol in juice or applesauce to see if it tastes better. - Will try to clean out his ears with Debrox and irrigation. (2) Dysphagia: As above, appreciate speech therapy. - Goal is patient comfort and ease of enjoying a meal and fluid (3) HTN (hypertension), benign: BP today has been high in the context of pain. - Continue home amlodipine as able - Continue hydralazine IV PRN - > Given hospice goal, not overly concerned with good BP control at this point. (4) Acute kidney injury: No acute needs, palliative care. - May need to adjust medications if this changes during admission for clearance. (5) Ineffective coping: Patient with adequate reasons for anger. - Consider psychiatric consultation as he does voice that he can at home with a gun - He has no active plan and no access to this while here. Admission and Anticipated Discharge Date Admission Date: August 02, 2020 Subjective Less pain and nausea today. Reports he can't hear very well, particularly from the left ear. Reports no fevers/chills, chest pain, shortness of breath, abdomin al pain, nausea, or vomiting. Physical Exam Constitutional: WD/WN, vitals as above + acute distress and + malnourished Eyes: EOM intact bilaterally; no conjunctival abnormality ENMT: external ear and nose normal, oropharynx normal Ears: + unable to visualize TM (Left cerumen impaction) Neck: trachea midline, no thyromegaly normal visual inspection Respiratory: normal respiratory effort, lungs clear to auscultation no respiratory distress Cardiovascular: RRR, no murmur, no edema Gastrointestinal (Abdomen): Inspection/Auscultation: abdomen normal to inspection; abdomen not distended Musculoskeletal: no cyanosis or clubbing, extremities motor strength 5/5 Skin: no rashes, warm and dry Neurologic: moves all extremities and awake Psychiatric: Orientation: alert, oriented to person and cooperative Results & Data Results & Data ([facility]) Vital Signs (Past 12 Hours) Vital Signs Temp Pulse Resp BP BP Pulse Ox 08/04/20 07:33 36.9 C 98 H 18 188/110 H 193/110 H 96 08/04/20 00:21 37.1 C 105 H 18 160/98 H 95 PG Care Time/CCT Total # of Minutes Spent Total Time Spent with Patient: Total time spent is greater than 50% in coordination of care (as documented) at patient's floor/unit and/or counseling patient: Coding Level of Care Code 50799 Subseq Hosp Care Lvl 2 Diagnoses Non-small cell lung cancer metastatic to brain C34.90; C79.31 Dysphagia R13.10 Dysphagia type: unspecified HTN (hypertension), benign I10 Acute kidney injury N17.9 Ineffective coping R45.89 (1) Dysphagia Dysphagia type: unspecified Qualified Code(s): R13.10 - Dysphagia, unspecified
[2020-08-04] MEDS: CARBAMIDE PEROXIDE 6.5% 15 ML BTL OT SCH ×2 (13:28→20:31)
--- NOTE | 2020-08-04 15:00 | Palliative Care Progress Note ---
Date of Service August 04, 2020 Assessment & Plan (1) Palliative care encounter: Plan for comfort directed care at SNF. Case management involved. His works and does not have support to care for him at home. (2) Headache: Discussed other morphine options. With his difficulty swallowing, his is concerned about morphine ER which would not be crushable. Morphine IR could be crushed and given in applesauce but would not likely improve taste. Will continue with roxanol in applesauce or some other carrier. (3) Non-small cell lung cancer metastatic to brain: Admission and Anticipated Discharge Date Admission Date: August 02, 2020 Subjective Adriel continues to have pain in his feet and head. Morphine is effective for this but he does not like the taste of roxanol. He continues to have problems with swallowing. Review of Systems Review of Systems: [place] Symptom Assessment Scale Pain 1/3 Dyspnea 0/3 Anxiety 2/3 Fatigue 2/3 Anorexia 2/3 Nausea 0/3 Physical Exam Constitutional: + thin and + frail appearing ENMT: Mouth: + dry oral mucous membranes Respiratory: normal respiratory effort; no labored breathing Cardiovascular: Extremities: no edema Gastrointestinal (Abdomen): Percussion/Palpation: abdomen nontender Neurologic: awake; not confused Results & Data ([facility]) Vital Signs (Past 12 Hours) Vital Signs Temp Pulse Resp BP BP Pulse Ox 08/04/20 07:33 98.4 F 98 H 18 188/110 H 193/110 H 96 PG Care Time/CCT Total # of Minutes Spent Total Time Spent with Patient: Total time spent is greater than 50% in coordination of care (as documented) at patient's floor/unit and/or counseling patient: Coding Level of Care Code 35540 Subseq Hosp Care Lvl 2 Diagnoses Palliative care encounter Z51.5 Headache R51.9; G89.29 Headache chronicity pattern: chronic headache Headache type: unspecified Intractability: intractable Non-small cell lung cancer metastatic to brain C34.90; C79.31 (1) Headache Headache chronicity pattern: chronic headache Headache type: unspecified Intractability: intractable Qualified Code(s): R51.9 - Headache, unspecified; G89.29 - Other chronic pain
[2020-08-04] MEDS: predniSONE 20 MG TAB PO SCH (17:29)
[2020-08-05] MEDS: MoRPHine SULFATE 10 MG/0.5 ML UDP PO SCH ×5 (00:15→19:15)
[2020-08-05] MEDS: amLODIPine BESYLATE 5 MG TAB PO SCH (08:41)
[2020-08-05] MEDS: GABAPENTIN 300 MG CAP PO SCH ×2 (08:42→21:41)
[2020-08-05] MEDS: DOCUSATE SODIUM/SENNA 50/8.6MG TAB PO SCH (08:42)
[2020-08-05] MEDS: CARBAMIDE PEROXIDE 6.5% 15 ML BTL OT SCH ×3 (08:44→21:41)
[2020-08-05] MEDS: LIDOCAINE 5% 1 PATCH TD SCH (08:45)
[2020-08-05] MEDS: NICOTINE 21 MG/24 HR TDSY TD SCH (08:45)
[2020-08-05] MEDS: LORazepam 0.5 MG TAB PO PRN ×2 (08:58→13:47)
--- NOTE | 2020-08-05 15:43 | Palliative Care Progress Note ---
Date of Service August 05, 2020 Assessment & Plan (1) Palliative care encounter: Met with Adriel, his and parents at bedside with case management. He is not interested in SNF placement and is wanting to go home but family does not have sufficient support to care for him at home. His works, his son works and his parents are elderly and not in the best of health. We discussed paid caregiver support as a possible option. In the interim, Adriel says that he is willing to go to SNF for short term therapy to try to improve his functional status. Family is aware that he will likely continue to decline. (2) Non-small cell lung cancer metastatic to brain: Admission and Anticipated Discharge Date Admission Date: August 02, 2020 Subjective Reports that pain is controlled. He has been taking roxanol with gatorade. No BM since admission. Denies abdominal pain, nausea. Review of Systems Review of Systems: [place] Symptom Assessment Scale Pain 0/3 Dyspnea 0/3 Anxiety 1/3 Fatigue2/3 Nausea 0/3 Palliative Performance Score 40% Physical Exam Constitutional: + ill appearing and + thin ENMT: Mouth: oral mucous membranes not dry Respiratory: normal respiratory effort; no labored breathing Gastrointestinal (Abdomen): Percussion/Palpation: abdomen nontender Musculoskeletal: Extremities: + muscle atrophy Neurologic: awake and + confused (at times) Results & Data ([facility]) Vital Signs (Past 12 Hours) Vital Signs Temp Pulse Resp BP Pulse Ox 08/05/20 07:49 98.6 F 109 H 18 177/98 H 93 PG Care Time/CCT Total # of Minutes Spent Total Time Spent with Patient: Total time spent is greater than 50% in coordination of care (as documented) at patient's floor/unit and/or counseling patient: Coding Level of Care Code 76108 Subseq Hosp Care Lvl 2 Diagnoses Palliative care encounter Z51.5 Non-small cell lung cancer metastatic to brain C34.90; C79.31
[2020-08-05] MEDS: predniSONE 20 MG TAB PO SCH (16:20)
[2020-08-05] MEDS: hydrALAZINE HCL 20 MG/ML VIAL IV PRN (16:20)
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
[2020-08-05] MEDS: LOSARTAN POTASSIUM 25 MG TAB PO SCH (21:41)
[2020-08-05] MEDS: clonazePAM 0.5 MG TAB PO SCH (21:41)
--- NOTE | 2020-08-05 22:47 | Hospitalist Progress Note ---
Date of Service August 05, 2020 Assessment & Plan (1) Non-small cell lung cancer metastatic to brain: As per HPI. See Oncology note from 04/13/20 - Patient and ready for palliative care and hospice - Pain and nausea control - Considering rehab vs. SNF with hospice. - Palliative care and case management consult for- hospice -> Will try Roxanol in juice or applesauce to see if it tastes better. - Will try to clean out his ears with Debrox and irrigation. (2) Dysphagia: As above, appreciate speech therapy. - Goal is patient comfort and ease of enjoying a meal and fluid (3) HTN (hypertension), benign: BP today has been high in the context of pain. - Continue home amlodipine as able - [facility] - [facility], will add Blood pressure Due to BP being very high, will add losartan. continue CCB. If remains elevated may add chlorthalidone. Given that BP is above 180-200 systolic, would likel to prevent any other comrbidities which may worsen his limited quality of life. (4) Acute kidney injury: No acute needs, palliative care. - May need to adjust medications if this changes during admission for clearance. (5) Ineffective coping: Patient with adequate reasons for anger. - Consider psychiatric consultation as he does voice that he can at home with a gun - He has no active plan and no access to this while here. D/W palliative care and CM. Admission and Anticipated Discharge Date Admission Date: August 02, 2020 Subjective Patient is resting comfortably. Patient is in no distress Review of Systems Review of Systems: All systems reviewed & are unremarkable except as noted in HPI & below Physical Exam Constitutional: WD/WN, vitals as above no acute distress lying in bed Results & Data Results & Data ([facility]) Vital Signs (Past 12 Hours) Vital Signs Temp Pulse Pulse Resp BP Pulse Ox 08/05/20 21:36 106 H 177/100 H 08/05/20 15:46 37.0 C 73 16 182/112 H 98 PG Care Time/CCT Total # of Minutes Spent Total Time Spent with Patient: Total time spent is greater than 50% in coordination of care (as documented) at patient's floor/unit and/or counseling patient: Coding Level of Care Code 03573 Subseq Hosp Care Lvl 3 Diagnoses Non-small cell lung cancer metastatic to brain C34.90; C79.31 Dysphagia R13.10 Dysphagia type: unspecified HTN (hypertension), benign I10 Acute kidney injury N17.9 Ineffective coping R45.89 Time Spent (min) 35 (1) Dysphagia Dysphagia type: unspecified Qualified Code(s): R13.10 - Dysphagia, unspecified
[2020-08-06] MEDS: MoRPHine SULFATE 10 MG/0.5 ML UDP PO SCH ×6 (00:33→23:29)
[2020-08-06] MEDS: NICOTINE 21 MG/24 HR TDSY TD SCH (08:10)
[2020-08-06] MEDS: LIDOCAINE 5% 1 PATCH TD SCH (08:10)
[2020-08-06] MEDS: DOCUSATE SODIUM/SENNA 50/8.6MG TAB PO SCH (08:12)
[2020-08-06] MEDS: GABAPENTIN 300 MG CAP PO SCH ×2 (08:12→20:33)
[2020-08-06] MEDS: ESCITALOPRAM OXALATE 10 MG TAB PO SCH (08:12)
[2020-08-06] MEDS: amLODIPine BESYLATE 5 MG TAB PO SCH (08:12)
[2020-08-06] MEDS: CARBAMIDE PEROXIDE 6.5% 15 ML BTL OT SCH ×3 (08:13→20:34)
[2020-08-06] MEDS: clonazePAM 0.5 MG TAB PO SCH ×3 (08:26→20:33)
[2020-08-06 11:12] LABS: BUN Creatinine Ratio 33.2 (10-20); Calcium 9.2 mg/dl (8.5-10.1); Creatinine Clr Calc Pharmacy 80.4 ml/min; Est GFR (African American) 99.5; Est GFR (Non-African American) 85.8; Potassium 3.3 mmol/L (3.5-5.1)
[2020-08-06] MEDS: CHLORTHALIDONE 25 MG TAB PO SCH (13:02)
[2020-08-06] MEDS: predniSONE 20 MG TAB PO SCH (16:30)
[2020-08-06] MEDS: LOSARTAN POTASSIUM 25 MG TAB PO SCH (20:33)
--- NOTE | 2020-08-06 22:17 | Hospitalist Progress Note ---
Date of Service August 06, 2020 Assessment & Plan (1) Non-small cell lung cancer metastatic to brain: As per HPI. See Oncology note from 04/13/20 - Patient and ready for palliative care and hospice - Pain and nausea control - Considering rehab vs. SNF with hospice. - Palliative care and case management consult for- hospice -> Will try Roxanol in juice or applesauce to see if it tastes better. - Will try to clean out his ears with Debrox and irrigation. -Plan is for SNF. (2) Dysphagia: As above, appreciate speech therapy. - Goal is patient comfort and ease of enjoying a meal and fluid (3) HTN (hypertension), benign: BP today has been high in the context of pain. - Continue home amlodipine as able - Continue hydralazine IV PRN - > [facility] is likely [facility], will add Blood pressure Due to BP being very high, continue losartan. continue CCB. will add thiazide: chlorthalidone If remains elevated may add chlorthalidone. Given that BP is above 180-200 systolic, would likel to prevent any other comorbidities which may worsen his limited quality of life. (4) Acute kidney injury: No acute needs, palliative care. - May need to adjust medications if this changes during admission for clearance. (5) Ineffective coping: Patient with adequate reasons for anger. - Consider psychiatric consultation as he does voice that he can at home with a gun - He has no active plan and no access to this while here. D/W palliative care and CM. Admission and Anticipated Discharge Date Admission Date: August 02, 2020 Subjective No new complaints. Review of Systems Review of Systems: All systems reviewed & are unremarkable except as noted in HPI & below Physical Exam Constitutional: WD/WN, vitals as above no acute distress Results & Data Results & Data ([facility]) Vital Signs (Past 12 Hours) Vital Signs Temp Pulse Pulse Resp BP BP Pulse Ox 08/06/20 20:32 89 176/98 H 08/06/20 17:02 36.6 C 98 H 18 156/97 H 93 PG Care Time/CCT Total # of Minutes Spent Total Time Spent with Patient: Total time spent is greater than 50% in coordination of care (as documented) at patient's floor/unit and/or counseling patient: Coding Level of Care Code 89165 Subseq Hosp Care Lvl 2 Diagnoses Non-small cell lung cancer metastatic to brain C34.90; C79.31 Dysphagia R13.10 Dysphagia type: unspecified HTN (hypertension), benign I10 Acute kidney injury N17.9 Ineffective coping R45.89 Time Spent (min) 25 (1) Dysphagia Dysphagia type: unspecified Qualified Code(s): R13.10 - Dysphagia, unspecified
[2020-08-07] MEDS: MoRPHine SULFATE 10 MG/0.5 ML UDP PO SCH ×4 (06:09→23:11)
[2020-08-07] MEDS: GABAPENTIN 300 MG CAP PO SCH ×2 (08:59→20:23)
[2020-08-07] MEDS: clonazePAM 0.5 MG TAB PO SCH ×2 (08:59→13:07)
[2020-08-07] MEDS: DOCUSATE SODIUM/SENNA 50/8.6MG TAB PO SCH (08:59)
[2020-08-07] MEDS: amLODIPine BESYLATE 5 MG TAB PO SCH (08:59)
[2020-08-07] MEDS: CHLORTHALIDONE 25 MG TAB PO SCH (08:59)
[2020-08-07] MEDS: ESCITALOPRAM OXALATE 10 MG TAB PO SCH (09:00)
[2020-08-07] MEDS: MoRPHine SULFATE 4 MG/ML 1 ML CARP\\VIAL IV PRN (09:02)
[2020-08-07] MEDS: NICOTINE 21 MG/24 HR TDSY TD SCH (09:22)
[2020-08-07] MEDS: LIDOCAINE 5% 1 PATCH TD SCH (09:22)
[2020-08-07] MEDS: CARBAMIDE PEROXIDE 6.5% 15 ML BTL OT SCH ×3 (09:25→20:25)
[2020-08-07] MEDS: predniSONE 20 MG TAB PO SCH (17:23)
[2020-08-07] MEDS: LOSARTAN POTASSIUM 25 MG TAB PO SCH (20:22)
[2020-08-07] MEDS ORDERED: clonazePAM 0.25 MG TAB PO SCH (21:00)
--- NOTE | 2020-08-07 22:09 | Hospitalist Progress Note ---
Date of Service August 07, 2020 Assessment & Plan (1) Non-small cell lung cancer metastatic to brain: As per HPI. See Oncology note from 04/13/20 - Patient and ready for palliative care and hospice - Pain and nausea control - Considering rehab vs. SNF with hospice. - Palliative care and case management consult for- hospice -> Will try Roxanol in juice or applesauce to see if it tastes better. - Will try to clean out his ears with Debrox and irrigation. -Plan is for SNF. -Will cut back his clonazepam due to him being more drowsy (2) Dysphagia: As above, appreciate speech therapy. - Goal is patient comfort and ease of enjoying a meal and fluid (3) HTN (hypertension), benign: BP today has been high in the context of pain. - Continue home amlodipine as able - Continue hydralazine IV PRN - > [facility] hospice is likely goal, will add Blood pressure Due to BP being very high, continue losartan. continue CCB. will add thiazide: chlorthalidone If remains elevated may add chlorthalidone. Given that BP is above 180-200 systolic, would likel to prevent any other comorbidities which may worsen his limited quality of life. (4) Acute kidney injury: No acute needs, palliative care. - May need to adjust medications if this changes during admission for clearance. (5) Ineffective coping: Patient with adequate reasons for anger. - Consider psychiatric consultation as he does voice that he can at home with a gun - He has no active plan and no access to this while here. D/W palliative care and CM. Admission and Anticipated Discharge Date Admission Date: August 02, 2020 Subjective Patient is lying in bed comfortable. No new complaints Review of Systems Review of Systems: Unobtainable due to cognitive status Physical Exam Physical Exam: Appears to be sleeping more Constitutional: WD/WN, vitals as above well developed; no acute distress and not in distress ENMT: external ear and nose normal, oropharynx normal Results & Data Results & Data ([facility]) Vital Signs (Past 12 Hours) Vital Signs Temp Pulse Pulse Resp BP Pulse Ox 08/07/20 20:20 97 H 175/91 H 08/07/20 19:09 36.4 C L 94 H 17 164/106 H 96 08/07/20 16:42 36.5 C 98 H 17 158/96 H 94 PG Care Time/CCT Total # of Minutes Spent Total Time Spent with Patient: Total time spent is greater than 50% in coordination of care (as documented) at patient's floor/unit and/or counseling patient: Coding Level of Care Code 15217 Subseq Hosp Care Lvl 2 Diagnoses Non-small cell lung cancer metastatic to brain C34.90; C79.31 Dysphagia R13.10 Dysphagia type: unspecified HTN (hypertension), benign I10 Acute kidney injury N17.9 Ineffective coping R45.89 Time Spent (min) 25 (1) Dysphagia Dysphagia type: unspecified Qualified Code(s): R13.10 - Dysphagia, unspecified
[2020-08-08] MEDS: MoRPHine SULFATE 10 MG/0.5 ML UDP PO SCH ×2 (06:02→13:48)
[2020-08-08] MEDS: NICOTINE 21 MG/24 HR TDSY TD SCH (09:53)
[2020-08-08] MEDS: ESCITALOPRAM OXALATE 10 MG TAB PO SCH (09:54)
[2020-08-08] MEDS: DOCUSATE SODIUM/SENNA 50/8.6MG TAB PO SCH (09:54)
[2020-08-08] MEDS: CARBAMIDE PEROXIDE 6.5% 15 ML BTL OT SCH (09:54)
[2020-08-08] MEDS: LIDOCAINE 5% 1 PATCH TD SCH (09:54)
[2020-08-08] MEDS: GABAPENTIN 300 MG CAP PO SCH (09:54)
[2020-08-08] MEDS: CHLORTHALIDONE 25 MG TAB PO SCH (09:55)
[2020-08-08] MEDS: amLODIPine BESYLATE 5 MG TAB PO SCH (09:55)
--- NOTE | 2020-08-14 11:43 | Discharge Summary ---
Date of Service August 08, 2020 Admission HPI Per Admitting Provider 55 YOM with NSCLC with metastatic disease to brain 2018. He was originally diagnosed in 2019 through evaluation for bifrontal headaches, anorexia and weight loss. MRI of the brain revealed multiple intra-cerebral and cerebellar lesions and was transferred to [facility]. He completed 6 cycles of combo Paclitaxel, Carboplatin, and Pembrolizumab and then was on maintenance Pembrolizumab that was discontinued in May 2019 secondary to severe disseminated skin rash. He then started Gemzar in October of 2019. Brain MRI in January with new left cerebellar and left temporal lobe lesions and underwent Gamma knife in Mar 2020. His disease continued to progress and involved renal dysfunction and probable GI bleed requiring transfusions. In April patient had discussion with his oncologist and the for transition to palliative care and home hospice. The patient did not undergo hospice care, because he didn't feel that he needed it at that time. Patient was referred in today by his Oncologist Dr. Andrea, for worsening pain to his neck, hips, and feet, decline in nutritional status and functional status. I spoke with the patient and his who remains at the bedside, he is rightfully angry at his situation. He was able to be calmed down, to assess what he feels is important and needed for him. He does wish to remain no code and transition to being made comfortable. He wants to eat and smoke. He did accept a nicotine patch and that calmed him down knowing that was an option. He reports difficulty eating because he has no teeth to chew his food, and gets tired easily chewing, this leads him to having swallowing difficulties. His also notes that he coughs on water when he is fatigued. They both are ready for hospice assistance. What is important to the patient now is having better pain control, being able to enjoy some food, wants alcohol and to be able to smoke. He was on no pain mediations prior, so will start with Morphine IV for severe pain, Roxanol for longer lasting relief, and Tylenol. Speech therapy consult to assist with possibly getting a consistency of food and liquid that is easier for him to manage. Palliative care consult will also be placed. Principal Diagnosis non small cell lung cancer with metastasis to the brain Discharge Exam Physical Exam: Appears to be sleeping more Constitutional: WD/WN, vitals as above well developed; no acute distress and not in distress ENMT: external ear and nose normal, oropharynx normal Discharge Data Allergies Allergy/AdvReac Type Severity Reaction Status Date / Time No Known Allergies Allergy Verified 08/02/20 13:57 Consultations 08/02/20 13:22 ED Decision to Admit Stat 08/02/20 15:28 Consult Palliative Care Routine 08/05/20 09:14 Consult Psychiatry Routine Ordered Studies 08/02/20 11:29 CT head/brain wo con Stat Hospital Course (1) Non-small cell lung cancer metastatic to brain: As per HPI. See Oncology note from 04/13/20 - Patient and ready for palliative care and hospice - Pain and nausea control - Considering rehab vs. SNF with hospice. - Palliative care and case management consult for- hospice -> Will try Roxanol in juice or applesauce to see if it tastes better. - Will try to clean out his ears with Debrox and irrigation. -Plan is for SNF. -Will cut back his clonazepam due to him being more drowsy (2) Dysphagia: As above, appreciate speech therapy. - Goal is patient comfort and ease of enjoying a meal and fluid (3) HTN (hypertension), benign: BP today has been high in the context of pain. - Continue home amlodipine as able - Continue hydralazine IV PRN - > [facility] hospice is likely goal, will add Blood pressure Due to BP being very high, continue losartan. continue CCB. will add thiazide: chlorthalidone If remains elevated may add chlorthalidone. Given that BP is above 180-200 systolic, would likel to prevent any other comorbidities which may worsen his limited quality of life. (4) Acute kidney injury: No acute needs, palliative care. - May need to adjust medications if this changes during admission for clearance. (5) Ineffective coping: Patient with adequate reasons for anger. - Consider psychiatric consultation as he does voice that he can at home with a gun - He has no active plan and no access to this while here. D/W palliative care and CM. Total Time Total Time Spent Total Time Spent (In Minutes): 31 Total Time Includes: Examination of the Patient, Discharge Planning, Medication Reconciliation and Communication With Other Providers Discharge Plan Discharge Items Patient Disposition: Transfer [facility] Reason For Visit: PAIN CONTROL Discharge Diagnosis: Pain control Activity: Resume your previous activity Non-emergency contact: Primary Care Provider Call non-emergency contact if: you have any medication questions Follow-up/Referrals: Nehemias Shane [Primary Care Provider] - Diet: Regular Diet Comment: minced and moist Addtl Attending Provider Instructions: Will be discharged to SNF with plans to likely transition to hospice. Pending Studies at Discharge: No Stand-Alone Forms: My [facility] Skilled Items Patient informed of condition?: Yes DNR: Yes Discharge Level of Care: Skilled Communicable Disease: No Discharge Prognosis: Stable Lines: None Urinary Catheter: No Medications and DC Order Prescriptions: New morphine concentrate 100 mg/5 mL (20 mg/mL) Solution 10 mg PO Q6H Qty: 30 RF: 0 clonazepam 0.5 mg Tablet 0.25 mg PO HS Qty: 15 RF: 0 lorazepam 0.5 mg Tablet 0.5 mg PO Q4H PRN (Reason: anxiety) Qty: 15 RF: 0 losartan 25 mg Tablet 25 mg PO QPM Qty: 30 RF: 0 nicotine [Nicoderm CQ] 21 mg/24 hr Patch 24 Hour 21 mg transdermal QAM Qty: 30 RF: 0 escitalopram oxalate 10 mg Tablet 10 mg PO QAM Qty: 30 RF: 0 chlorthalidone 25 mg Tablet 25 mg PO QAM Qty: 30 RF: 0 lidocaine 5 % Adhesive Patch,Medicated 1 patch transdermal QAM Qty: 15 RF: 0 bisacodyl [Gentle Laxative (bisacodyl)] 5 mg Tablet,Delayed Release (Dr/Ec) 5 mg PO BID PRN (Reason: constipation) Qty: 30 RF: 0 atropine 1 % Drops 4 drp sublingual Q1H PRN (Reason: secretions) Qty: 5 RF: 0 Continued gabapentin 300 mg capsule 300 mg PO BID RF: 0 acetaminophen [Tylenol] 325 mg capsule 325 mg PO Q6H PRN (Reason: Pain) RF: 0 prednisone 20 mg tablet 20 mg PO QDD RF: 0 amlodipine 2.5 mg tablet 2.5 mg PO QAM RF: 0 Discharge Orders: Discharge Order (Routine); Ordered 08/08/20 Ordered By: Dheeraj Yousif Admission Data Admit Date/Time: 08/02/20 16:16 Attending Provider: Dheeraj Yousif Admit Provider: Ester Paredes Primary Care Provider: Nehemias Shane Other Providers: Connie Ramos ; Daryl Roche ; Lucy Salter ; [facility] ; [place],Care Other Interventions: Discharge Summary Assessment (RN) Last Done: 08/08/20 15:06 Coding Level of Care Code D/C Day Management >30 mins Diagnoses Non-small cell lung cancer metastatic to brain C34.90; C79.31 Dysphagia R13.10 Dysphagia type: unspecified HTN (hypertension), benign I10 Acute kidney injury N17.9 Ineffective coping R45.89
== END 2020-08-08 15:39 | DRG 180 ==
LOC: ED 10:08 → SUATTDRO 16:16 → 3N 16:16